=== PATIENT | female | born 1990 | race African-American/Black ===

== ENCOUNTER 2017-06-09 21:03 | Emergency (ER) | payer SELFPAY ==
[~2017-06-09] VITALS: Ht 154.9 cm; Wt 60.0 kg
[~2017-06-09 21:03] MED LIST: MACR100C PO
[2017-06-09 21:04] VITALS: BP 163/106; PULSE 83; RESP 16; TEMP 97.6; O2SAT 98
[2017-06-09] MEDS ORDERED: SODIUM CHLOR 0.9% 1000 ML INJ 1,000 ML IV ONE (21:06)
[2017-06-09] MEDS ORDERED: LORazepam 2 MG/ML VIAL ONE (21:06)
--- NOTE | 2017-06-09 21:08 | PD ---
HPI Time Seen by Provider: 21:07 History of Present Illness HPI 26-year-old female with PMH of asthma presents to the ED for evaluation of possible seizure. The patient was visiting her uncle upstairs and received the news that he is brain . According to family members at bedside the patient was staring blankly for a few moments before going outside to the car. The patients cousin states that the patient was in the car and drank "a whole bottle of water" then had a small amount of clear emesis. The cousin states that the patient began speaking through clenched teeth, then closed her eyes and stopped responding. She states that this lasted ~10 minutes. On presentation the patient is sitting up in the wheelchair, hyperventilating. She is able to transfer to the bed. She is alert and responds appropriately to questioning by nodding her head, but is nonverbal. PFSH Past Medical History Asthma: Yes Diminished Hearing: No Reproductive: Yes (OVARIAN CYST) Immunizations Current: No Menopausal: No : 0 Para: 0 Miscarriage: 0 : 0 Ovarian Cysts: Yes (HERE A FEW TIMES , DX'D W OVARIAN CYSTS) Social History Alcohol Use: No Tobacco Use: No (DENIES NOW) Substance Use: No (DENIES) Allergies-Medications (Allergen,Severity, Reaction): Coded Allergies: No Known Allergies (Verified , 06/09/17) Reported Meds & Prescriptions Reported Meds & Active Scripts Active No Active Prescriptions or Reported Medications Review of Systems Except as stated in HPI: all other systems reviewed are Neg Physical Exam Narrative GENERAL: Well-nourished, well-developed female in no acute distress. SKIN: Focused skin assessment warm/dry. HEAD: Normocephalic. EYES: No scleral icterus. No injection or drainage. PERRLA. EOMI. NECK: Supple, trachea midline. No JVD or lymphadenopathy. CARDIOVASCULAR: Regular rate and rhythm without murmurs, gallops, or rubs. RESPIRATORY: Breath sounds clear and equal bilaterally. No accessory muscle use. Patient is hyperventilating and GASTROINTESTINAL: Abdomen soft, non-tender, nondistended. Active bowel sounds. MUSCULOSKELETAL: No cyanosis, or edema. NEUROLOGICAL: Awake and alert. Cranial nerves II through XII intact. Motor and sensory grossly within normal limits. Five out of 5 muscle strength in all muscle groups. Normal speech. BACK: Nontender without obvious deformity. No CVA tenderness. Data Data Last Documented VS Vital Signs Date Time Temp Pulse Resp B/P (MAP) Pulse Ox O2 Delivery O2 Flow Rate FiO2 06/09/17 21:12 82 16 116/57 (76) 98 Room Air 06/09/17 21:04 97.6 Orders Orders Lorazepam Inj (Ativan Inj) (06/09/17 21:06) Complete Blood Count With Diff (06/09/17 21:06) Drug Screen, Random Urine (06/09/17 21:06) Electrocardiogram (06/09/17 ) Blood Glucose (06/09/17 21:06) Ecg Monitoring (06/09/17 21:06) Iv Access Insert/Monitor (06/09/17 21:06) Oximetry (06/09/17 21:06) Comprehensive Metabolic Panel (06/09/17 21:06) Sodium Chlor 0.9% 1000 Ml Inj (Ns 1000 M (06/09/17 21:06) Sodium Chloride 0.9% Flush (Ns Flush) (06/09/17 21:15) Lorazepam Inj (Ativan Inj) (06/09/17 21:15) Ua Includes Microscopic (06/09/17 21:06) Ed Urine Pregnancytest Poc (06/09/17 22:03) Labs Laboratory Tests Test 06/09/17 20:40 06/09/17 21:10 06/09/17 22:05 White Blood Count 10.6 TH/MM3 Red Blood Count 4.23 MIL/MM3 Hemoglobin 12.9 GM/DL Hematocrit 39.9 % Mean Corpuscular Volume 94.1 FL Mean Corpuscular Hemoglobin 30.6 PG Mean Corpuscular Hemoglobin Concent 32.5 % Red Cell Distribution Width 12.5 % Platelet Count 331 TH/MM3 Mean Platelet Volume 8.6 FL Neutrophils (%) (Auto) 58.6 % Lymphocytes (%) (Auto) 32.8 % Monocytes (%) (Auto) 5.9 % Eosinophils (%) (Auto) 2.0 % Basophils (%) (Auto) 0.7 % Neutrophils # (Auto) 6.2 TH/MM3 Lymphocytes # (Auto) 3.5 TH/MM3 Monocytes # (Auto) 0.6 TH/MM3 Eosinophils # (Auto) 0.2 TH/MM3 Basophils # (Auto) 0.1 TH/MM3 CBC Comment DIFF FINAL Differential Comment Blood Urea Nitrogen 14 MG/DL Creatinine 1.26 MG/DL Random Glucose 99 MG/DL Total Protein 7.8 GM/DL Albumin 4.0 GM/DL Calcium Level 8.5 MG/DL Alkaline Phosphatase 51 U/L Aspartate Amino Transf (AST/SGOT) 14 U/L Alanine Aminotransferase (ALT/SGPT) 18 U/L Total Bilirubin 0.5 MG/DL Sodium Level 135 MEQ/L Potassium Level 3.8 MEQ/L Chloride Level 104 MEQ/L Carbon Dioxide Level 20.9 MEQ/L Anion Gap 10 MEQ/L Estimat Glomerular Filtration Rate 62 ML/MIN Urine Color YELLOW Urine Turbidity CLEAR Urine pH 6.0 Urine Specific Gray 1.015 Urine Protein NEG mg/dL Urine Glucose (UA) NEG mg/dL Urine Ketones NEG mg/dL Urine Occult Blood NEG Urine Nitrite NEG Urine Bilirubin NEG Urine Urobilinogen LESS THAN 2.0 MG/DL Urine Leukocyte Esterase NEG Urine RBC LESS THAN 1 /hpf Urine WBC 1 /hpf Urine Squamous Epithelial Cells 3 /hpf Urine Opiates Screen NEG Urine Barbiturates Screen NEG Urine Amphetamines Screen NEG Urine Benzodiazepines Screen NEG Urine Cocaine Screen NEG Urine Cannabinoids Screen POS MDM Medical Decision Making Medical Screen Exam Complete: Yes Emergency Medical Condition: Yes Differential Diagnosis Psychogenic pseudoseizure versus asthma exacerbation versus Narrative Course 26-year-old female with PMH of asthma presents to the ED for evaluation of possible seizure. The patient was visiting her uncle upstairs and received the news that he is brain . According to family members at bedside the patient was staring blankly for a few moments before going outside to the car. The patients cousin states that the patient was in the car and drank "a whole bottle of water" then had a small amount of clear emesis. The cousin states that the patient began speaking through clenched teeth, then closed her eyes and stopped responding. She states that this lasted ~10 minutes. On presentation the patient is sitting up in the wheelchair, hyperventilating. She is able to transfer to the bed. She is alert and responds appropriately to questioning by nodding her head, but is nonverbal. Vitals reviewed. Physical exam reveals a nontoxic-appearing affect [place] female in no acute distress. Chest is clear to auscultation bilateral. Abdomen soft and nontender. No focal neuro deficits. Patient was administered 1 mg Ativan IV. On recheck the patient is sitting up in bed, responds verbally to questioning. She states that she's had one similar episode which was also related to a psychological shock. She states she feels "fine." She is anxious to leave. No concerning abnormalities of the CBC, CMP, UA. Tox screen positive for marijuana. While waiting for the head CT the patient became agitated, stated that she "felt fine" and did not want to stay for the CT. The risks of leaving , up to and including were explained to the patient. She still chose to leave AGAINST MEDICAL ADVICE. Diagnosis Primary Impression: Psychiatric pseudoseizure Referrals: Primary Care Physician Patient Instructions: General Instructions, Stress (ED) Additional Instructions: Rest, hydrate. Return to normal, gentle activity as tolerated. Follow-up with your primary care provider. Return to the ED for any urgent or emergent medical condition. Scripts No Active Prescriptions or Reported Meds Disposition: 07 AGAINST MEDICAL ADVICE Condition: Stable Chhaya Trinh Jun 09, 2017 21:08
[2017-06-09 21:12] VITALS: BP 116/57; PULSE 82; RESP 16; O2SAT 98
[2017-06-09] MEDS ORDERED: LORazepam 2 MG/ML VIAL IVS ONE (21:15)
[2017-06-09] MEDS ORDERED: SODIUM CHLORIDE 0.9% FLUSH 10 ML FLUSH IVF PRN (21:15)
[2017-06-09 21:35] LABS: AUTOMATED NEUTROPHIL # 6.2 TH/MM3 (1.8-7.7); BASOPHIL # 0.1 TH/MM3 (0-0.2); BASOPHIL % 0.7 % (0.0-2.0); EOSINOPHIL # 0.2 TH/MM3 (0-0.4); HEMATOCRIT 39.9 % (35.0-46.0); HEMO FLAGS DIFF FINAL; LYMPH % 32.8 % (9.0-44.0); LYMPHOCYTE # 3.5 TH/MM3 (1.0-4.8); MEAN CELL VOLUME 94.1 FL (80.0-100.0); MEAN CORPUSCULAR HEMOGLOBIN 30.6 PG (27.0-34.0); MEAN CORPUSCULAR HGB CONC 32.5 % (32.0-36.0); MONO % 5.9 % (0.0-8.0); NEUT % 58.6 % (16.0-70.0); PLATELET COUNT 331 TH/MM3 (150-450); RED BLOOD COUNT 4.23 MIL/MM3 (4.00-5.30); RED CELL DISTRIBUTION WIDTH 12.5 % (11.6-17.2); WHITE BLOOD COUNT 10.6 TH/MM3 (4.0-11.0)
[2017-06-09 21:49] LABS: ANION GAP 10 MEQ/L (5-15); AST (GOT) 14 U/L (15-37); BICARBONATE 20.9 MEQ/L (21.0-32.0); BLOOD UREA NITROGEN 14 MG/DL (7-18); CHLORIDE 104 MEQ/L (98-107); GLOMERULAR FILTRATION RATE 62 ML/MIN (>89); POTASSIUM 3.8 MEQ/L (3.5-5.1); SODIUM (NA) 135 MEQ/L (136-145)
[2017-06-09 21:51] LABS: ALT (GPT) 18 U/L (10-53)
[2017-06-09 21:53] LABS: ALKALINE PHOSPHATASE 51 U/L (45-117); TOTAL BILIRUBIN ADULT 0.5 MG/DL (0.2-1.0)
[2017-06-09 22:36] LABS: BLOOD, URINE NEG (NEG); GLUCOSE,URINE NEG (NEG); KETONE, URINE NEG (NEG); NITRITE,URINE NEG (NEG); SQUAMOUS EPITHELIAL CELL URINE 3 /hpf (0-5); URINE COLOR YELLOW (YELLW/STRAW)
--- NOTE | 2017-06-10 15:20 | EKG ---
Date Performed: 06/09/2017 Time Performed: 21:35:55 PTAGE: 26 years EKG: Sinus rhythm NORMAL ECG NO PREVIOUS TRACING DOCTOR: Bret Daley Interpretating Date/Time 06/10/2017 15:18:30
== END 2017-06-09 23:41 | disposition left against medical advice (07) ==
LOC: NEPC 21:03
DX: F44.5 Conversion disorder with seizures or convulsions (principal); F12.90 Cannabis use, unspecified, uncomplicated
CPT/HCPCS: 80053; 80307; 81001; 84703; 85025; 93005; 96374; 99284; J2060; J7030